=== PATIENT | female | born 1990 | race African-American/Black ===

== ENCOUNTER 2019-02-02 00:05 | Emergency (ER) | payer OTHER ==
[2019-02-02] MEDS: ACETAMINOPHEN 500 MG TAB PO (00:32)
[2019-02-02 01:45] LABS: ADD UMIC YES; UR ASCORBIC ACID NEGATIVE (NEGATIVE); UR BACTERIA FEW /HPF (NONE SEEN); UR BILIRUBIN (Dip) NEGATIVE (NEGATIVE); UR BLOOD (Dip) NEGATIVE (NEGATIVE); UR CLARITY SLIGHTLY CLOUDY (CLEAR); UR COLOR AMBER (YELLOW); UR GLUCOSE (Dip) 1+ mg/dL (NEGATIVE); UR KETONES (Dip) 2+ mg/dL (NEGATIVE); UR LEUKOCYTE ESTERASE (Dip) TRACE Leu/ul (NEGATIVE); UR MUCUS MODERATE /HPF (NONE SEEN); UR NITRITE (Dip) NEGATIVE (NEGATIVE); UR RBC 1 /HPF (0-5); UR SPECIFIC GRAVITY (Dip) 1.023 (1.003-1.030); UR SQUAMOUS EPITHELIAL CELL FEW /HPF (FEW); UR TOTAL PROTEIN (Dip) 1+ mg/dl (NEGATIVE); UR UROBILINOGEN (Dip) NEGATIVE (NEGATIVE); UR WBC 16 /HPF (0-5)
== END 2019-02-02 02:38 | disposition home or self-care (01) ==
LOC: E/R 00:05
DX: O99.89 Other specified diseases and conditions complicating pregnancy, childbirth and the puerperium (principal); R50.9 Fever, unspecified; Z3A.38 38 weeks gestation of pregnancy
CPT/HCPCS: 71045; 81001; 87400; 99284-25

== ENCOUNTER 2019-02-02 02:51 | Inpatient (IN) | payer OTHER ==
[2019-02-02] MEDS ORDERED: CEFTRIAXONE 1 GM/50 ML (PMX) 50 ML IVPB (04:00)
[2019-02-02] MEDS: SOD CHLORIDE 0.9% 1,000 ML IV ×2 (04:12→12:00)
[2019-02-02 04:22] LABS: ADD MAN DIFF? NO
[2019-02-02 04:25] LABS: WHITE BLOOD COUNT 15.6 10^3/ul (4.8-10.8)
[2019-02-02 04:25] LABS: ABNORMAL IP MESSAGE 1; BASOPHIL # 0.1 10^3/ul (0.0-0.1); BASOPHILS % 0.3 % (0.0-2.0); EOSINOPHILS % 0.1 % (0.0-7.0); HEMATOCRIT 41.4 % (37.0-47.0); HEMOGLOBIN 14.1 g/dl (12.0-16.0); LYMPHOCYTES # 0.3 10^3/ul (0.8-2.9); LYMPHOCYTES % 1.6 % (15.0-51.0); MEAN CORPUSCULAR HEMOGLOBIN 29.9 pg (29.0-33.0); MEAN CORPUSCULAR HGB CONC 34.1 g/dl (32.0-37.0); MEAN CORPUSCULAR VOLUME 87.7 fl (82.0-101.0); MONOCYTE # 0.2 10^3/ul (0.3-0.9); NEUTROPHIL # 15.1 10^3/ul (1.6-7.5); NEUTROPHILS % 96.7 % (39.0-77.0); PLATELET COUNT 215 10^3/UL (140-415); RED BLOOD COUNT 4.72 10^6/ul (4.20-5.40); RED CELL DISTRIBUTION WIDTH 12.7 % (11.5-14.5)
[2019-02-02 04:35] LABS: POSITIVE DIFF @See below
[2019-02-02 04:42] LABS: ALANINE AMINOTRANSFERASE 28 IU/L (13-69); ALBUMIN 3.8 g/dl (3.3-4.9); ALBUMIN/GLOBULIN RATIO 1.18; ALKALINE PHOSPHATASE 229 IU/L (42-121); ANION GAP 11 (5-13); ASPARTATE AMINO TRANSFERASE 29 IU/L (15-46); BILIRUBIN,INDIRECT 0.9 mg/dl (0-1.1); BILIRUBIN,TOTAL 0.9 mg/dl (0.2-1.3); BLOOD UREA NITROGEN 6 mg/dl (7-20); CALCIUM 9.7 mg/dl (8.4-10.2); CARBON DIOXIDE 19 mmol/L (21-31); CHLORIDE 106 mmol/L (97-110); CREATININE 0.51 mg/dl (0.44-1.00); Estimated GFR > 60 mL/min (>60); GLUCOSE 129 mg/dl (70-220); POTASSIUM 3.2 mmol/L (3.5-5.1); SODIUM 136 mmol/L (135-144)
[2019-02-02] MEDS ORDERED: OXYTOCIN 30 UNITS/LR 500 ML IV ×3 (05:30→14:30)
[2019-02-02] MEDS ORDERED: MISOPROSTOL 200 MCG TAB PR ×2 (05:30→14:30)
[2019-02-02] MEDS ORDERED: IBUPROFEN 600 MG TAB PO (05:30)
[2019-02-02] MEDS ORDERED: METHYLERGONOVINE 0.2 MG INJ IM ×2 (05:30→14:30)
[2019-02-02] MEDS ORDERED: BUTORPHANOL 2 MG INJ IV ×2 (05:30)
[2019-02-02] MEDS ORDERED: CARBOPROST 250 MCG INJ IM ×2 (05:30→14:30)
[2019-02-02] MEDS ORDERED: LIDOCAINE 1% (MPF) 30 ML INJ INJ (05:30)
[2019-02-02 06:22] LABS: INR 0.89; PROTIME 12.1 Sec (11.9-14.9); PT RATIO 0.9
[2019-02-02 07:15] LABS: HEPATITIS B SURFACE ANTIGEN NEGATIVE (NEGATIVE)
[2019-02-02] MEDS: LACTATED RINGER'S 1,000 ML IV ×4 (07:32→18:08)
[2019-02-02] MEDS ORDERED: FENTAnyl 2MCG/ML-ROPIV 0.2% 100 ML (07:46)
[2019-02-02] MEDS ORDERED: DIPHENHYDRAMINE 50 MG INJ IV ×2 (08:30→11:30)
[2019-02-02] MEDS ORDERED: ONDANSETRON 4 MG INJ IV ×2 (08:30→11:30)
[2019-02-02] MEDS ORDERED: NALOXONE (0.4 MG/ML) INJ IV ×2 (08:30→11:30)
[2019-02-02] MEDS ORDERED: FENTAnyl 2MCG/ML-ROPIV 0.2% 100 ML BAG EPI (08:30)
[2019-02-02] MEDS: SODIUM CHLORIDE 0.9% 1L IRRIG IRR ×2 (09:00→17:38)
[2019-02-02] MEDS ORDERED: CEFAZOLIN 2 GM/50 ML (PMX) 50 ML IVPB ×2 (09:00→09:03)
[2019-02-02] MEDS: DEXTROSE 5%-LR 1,000 ML IV (09:21)
[2019-02-02] MEDS ORDERED: FENTAnyl 50 MCG/ML VIAL (09:55)
[2019-02-02] MEDS ORDERED: LIDOCAINE 1.5%/EPI MPF (SDV) 30 ML VIAL (10:07)
[2019-02-02] MEDS ORDERED: DEXAMETHASONE 4 MG/ML 1 ML INJ (10:08)
[2019-02-02] MEDS ORDERED: morphine SULFATE/PF (10 MG/10 ML) INJ (10:18)
[2019-02-02] MEDS ORDERED: ZOLPIDEM 5 MG TAB PO ×2 (11:30→14:30)
[2019-02-02] MEDS ORDERED: HYDROmorphONE 0.5 MG/0.5 ML SYG IV ×2 (11:30)
[2019-02-02] MEDS: AZITHROMYCIN 500MG/NS (PMX) 250 ML IVPB (12:22)
[2019-02-02] MEDS: OXYTOCIN 30 UNITS/LR 500 ML IV (13:29)
[2019-02-02] MEDS: KETOROLAC 30 MG INJ IV ×2 (13:44→22:42)
[2019-02-02] MEDS ORDERED: OXYCODONE/ASPIRIN (4.88/325) TAB PO (14:30)
[2019-02-02] MEDS ORDERED: BENZOCAINE 20% 56 ML SPRAY TOP (14:30)
[2019-02-02] MEDS ORDERED: WITCH HAZEL/GLYCERIN PAD PR (14:30)
[2019-02-02] MEDS: IBUPROFEN 600 MG TAB PO (17:37)
[2019-02-02] MEDS: LANOLIN HPA 1 PKT TOP (19:23)
[2019-02-02 20:48] LABS: RAPID PLASMA REAGIN NONREACTIVE (NR)
[2019-02-02] MEDS: SENNA/DOCUSATE NA (8.6MG/50MG) TAB PO (21:00)
[2019-02-03] MEDS: LACTATED RINGER'S 1,000 ML IV (03:03)
[2019-02-03] MEDS: IBUPROFEN 600 MG TAB PO ×5 (06:00→23:35)
[2019-02-03] MEDS: KETOROLAC 30 MG INJ IV (08:12)
[2019-02-03 09:55] LABS: HEMATOCRIT 30.7 % (37.0-47.0); HEMOGLOBIN 10.2 g/dl (12.0-16.0); MEAN CORPUSCULAR HEMOGLOBIN 29.5 pg (29.0-33.0); MEAN CORPUSCULAR HGB CONC 33.2 g/dl (32.0-37.0); MEAN CORPUSCULAR VOLUME 88.7 fl (82.0-101.0); MEAN PLATELET VOLUME 10.1 fl (7.4-10.4); PLATELET COUNT 178 10^3/UL (140-415); RED BLOOD COUNT 3.46 10^6/ul (4.20-5.40); RED CELL DISTRIBUTION WIDTH 13.3 % (11.5-14.5)
[2019-02-03 09:55] LABS: WHITE BLOOD COUNT 12.5 10^3/ul (4.8-10.8)
[2019-02-03 10:04] LABS: POSITIVE DIFF @See below
[2019-02-03 10:05] LABS: ADD MAN DIFF? YES
[2019-02-03] MEDS: SENNA/DOCUSATE NA (8.6MG/50MG) TAB PO ×2 (11:41→20:49)
[2019-02-03 11:53] LABS: ANISOCYTOSIS 2+ (0-0); BAND NEUTROPHILS #M 3.7 10^3/ul (0.0-0.6); BAND NEUTROPHILS % (M) 30 % (0-4); BASOPHIL #M 0.1 10^3/ul (0.0-0.0); BASOPHILS % (M) 1 % (0-2); EOSINOPHILS % (M) 2 % (0-7); GIANT THROMBO% (M) 2 % (0-0); LYMPHOCYTES #M 0.6 10^3/ul (0.8-2.9); LYMPHOCYTES % (M) 5 % (15-51); MICROCYTOSIS 2+ (0-0); MONOCYTE #M 0.2 10^3/ul (0.3-0.9); MONOCYTES % (M) 2 % (0-11); PLATELET ESTIMATE NORMAL; POIKILOCYTOSIS 1+ (0-0); POLYCHROMASIA 3+ (0-0); SEGMENTED NEUTROPHILS (M) % 60 % (39-77); SMUDGE%M 2 % (0-0)
[2019-02-03] MEDS: OXYCODONE/ASPIRIN (4.88/325) TAB PO ×2 (15:24→20:49)
[2019-02-03] MEDS: LANOLIN HPA 1 PKT TOP (23:35)
[2019-02-04] MEDS: IBUPROFEN 600 MG TAB PO ×4 (05:42→23:34)
[2019-02-04] MEDS: SENNA/DOCUSATE NA (8.6MG/50MG) TAB PO ×2 (09:42→20:47)
[2019-02-04] MEDS: OXYCODONE/ASPIRIN (4.88/325) TAB PO (16:30)
[2019-02-04] MEDS: PROMETHAZINE/DM (CUP) PO (16:40)
[2019-02-05] MEDS: IBUPROFEN 600 MG TAB PO ×3 (05:43→17:46)
[2019-02-05] MEDS: SENNA/DOCUSATE NA (8.6MG/50MG) TAB PO (08:28)
[2019-02-05] MEDS: DIPHTH/TET/ACEL PERTUSS (ADULT) 0.5 ML VIAL IM* (12:03)
[2019-02-05] MEDS: OXYCODONE/ASPIRIN (4.88/325) TAB PO (13:19)
[2019-02-05] MEDS: PROMETHAZINE/DM (CUP) PO (14:48)
== END 2019-02-05 18:25 | disposition home or self-care (01) | DRG 788 ==
LOC: OBT 02:51 → L-D 02:51 → OBT 05:00 → L-D 05:00 → PP1 14:07
PROC: 10D00Z1 Extraction of Products of Conception, Low, Open Approach (ICD-10-PCS; principal; 2019-02-04)
DX: O75.82 Onset (spontaneous) of labor after 37 completed weeks of gestation but before 39 completed weeks gestation, with delivery by (planned) cesarean section (principal); Z3A.39 39 weeks gestation of pregnancy; Z37.0 Single live birth
CPT/HCPCS: 36415; 76818; 80053; 85025; 85610; 85730; 86592; 86850; 86900; 86901; 87086; 87340; 96360; 99464